=== PATIENT | female | born 1985 | race Caucasian/White ===

== ENCOUNTER → 2017-01-04 | Outpatient (CLI) | payer MEDICAID ==
[~2017-01-04] MED LIST: IRON TABLETS325 MG PO; MOTRIN 400MG.400 MG PO; PERCOCET 5/3251 EACH PO; PRE-NATAL1 TAB PO
--- NOTE | 2017-01-04 16:22 | RADIOLOGY REPORT PS360 ---
US PELVIS-TRANSVAGINAL ONLY HISTORY: Heavy cycles, DUB ORDERING PHYSICIAN: Blake Doshi MD PATIENT AGE: 31 years COMPARISON: None FINDINGS: The uterus is 9 x 4 x 6 cm with a combined endometrial thickness of 12 mm.. No uterine mass evident. The left ovary is 4.5 x 2.7 cm containing multiple small follicles. The right ovary is 3.7 x 2 cm containing small follicles and a 14 mm cyst. Small amount of fluid is present in the cul-de-sac. IMPRESSION: 1. Mildly thickened endometrium at 12 mm. 2. Bilateral ovarian follicles with a 14 mm left ovarian cyst. 3. Small amount fluid in the cul-de-sac
== END ==
LOC: RAD 13:30
DX: N92.0 Excessive and frequent menstruation with regular cycle (principal)

== ENCOUNTER → 2017-01-16 | Outpatient (CLI) | payer MEDICAID ==
[2017-01-16 11:53] LABS: HEMOGLOBIN 12.4 g/dL (12.2-16.2); LYMPH # 3.5 K/mm3 (0.7-4.5); LYMPH % 37.1 % (10-50.0)
[2017-01-16 14:07] LABS: BUN 7 mg/dL (7-18)
[2017-01-16 14:11] LABS: GFR (ESTIMATED) 117 ML/MIN (59-)
== END ==
LOC: LAB 11:28
PROVIDERS: Nurse Practitioner Obstetrics & Gynecology
DX: R10.2 Pelvic and perineal pain (principal); N92.0 Excessive and frequent menstruation with regular cycle; R53.82 Chronic fatigue, unspecified